=== PATIENT | male | born 1985 | race Two or more races ===

== ENCOUNTER 2016-12-01 13:05 | Emergency (ER) | payer OTHER ==
[2016-12-01] MEDS ORDERED: PROPARACAINE HCL 0.5% 300 GTTS/BOT SOLN.DROP ONE (13:23)
== END 2016-12-01 13:47 | disposition home or self-care (01) ==
LOC: ED 13:05
DX: T15.02XA Foreign body in cornea, left eye, initial encounter (principal); H02.814 Retained foreign body in left upper eyelid; Z18.33 Retained wood fragments; W45.8XXA Other foreign body or object entering through skin, initial encounter; W27.0XXA Contact with workbench tool, initial encounter; Y93.H3 Activity, building and construction; Y92.9 Unspecified place or not applicable
CPT/HCPCS: 99283 ×2; A9270